=== PATIENT | female | born 1965 | race Caucasian/White ===

== ENCOUNTER 2016-10-02 11:34 | Emergency (ER) | payer MEDICAID ==
[2016-10-02] MEDS ORDERED: Sodium Chloride 0.9% 10 ML Syringe FLUSH PRN (11:42)
[2016-10-02] MEDS ORDERED: Aspirin 81 MG Tab.Chew PO ONE (11:50)
[2016-10-02 11:57] VITALS: BP 149/93
[2016-10-02 12:27] LABS: CHLORIDE,CL 102 mmol/L (101-111); SODIUM,NA 141 mmol/L (135-145)
--- NOTE | 2016-10-02 12:43 | CR ---
Clinical history: 51-year-old female chest pain reported March 2013 (same symptomatology) "no acu te intrathoracic finding"). Reevaluate please. Interpretation: Upright AP portable chest unremarkable. Normal cardiac silhouette and bony thorax. No cephalization of vascular flow, alveolar edema or depe ndent effusion. No new lung mass, hilar lymphadenopathy or focal lobar pneumonia identified in the interval since 16 April 2013 exam. No atelectasis/collapse. No pneumothorax. Chronic hypertrophic arthritic changes mildly scoliotic dorsal spine.
--- NOTE | 2016-10-02 13:24 | EDM.PDOC ---
Scribed by Scarlett Melissa 10/02/16 1324 for Lobo Borges MD ED HPI GENERAL MEDICAL PROBLEM - General Chief Complaint: Chest Pain Stated Complaint: DON'T FEEL GOOD CHEST PAIN ?[id number] Time Seen by Provider: 10/02/16 11:45 Source of Information: Reports: Patient, RN, RN Notes Reviewed History Limitations: Reports: No Limitations - History of Present Illness INITIAL COMMENTS - FREE TEXT/NARRATIVE: Arrives from work by POV with complaint of chest pain which began shortly after awakening this morning. Denies any shortness of breath. Admits to pain that radiates up the midline to the chest into the neck. Admits to anxiety with slight nausea. Patient believes the symptoms may be related to a Medrol Dose Andre that she took, because she had similar symptoms in the past when she took steroids. She admits to epigastric discomfort and heartburn. Denies vomiting, fever and chills. Onset: Today Location: Reports: Chest Severity: Moderate Improves with: Reports: None Worsens with: Reports: None Associated Symptoms: Reports: No Other Symptoms - Related Data Allergies Allergy/AdvReac Type Severity Reaction Status Date / Time acetaminophen [From Tylenol] Allergy Rash Verified 08/31/14 03:30 amoxicillin [Amoxicillin] Allergy Rash Verified 08/31/14 03:30 paroxetine HCl [From Paxil] Allergy Rash Verified 08/31/14 03:30 bleach Allergy Respiratory Uncoded 08/31/14 03:30 Distress Home Meds: Home Meds ALPRAZolam [Xanax] 0.5 mg PO ASDIRECTED PRN 04/16/13 [History] Albuterol [Proventil HFA] 2 puff INH Q4H PRN 04/16/13 [History] Fluticasone/Salmeterol [Advair 250-50 Diskus] 1 puff INH DAILY 04/16/13 [History ] Aspirin 81 mg PO DAILY 03/16/15 [History] Past Medical History Cardiovascular History: Reports: Other (See Below) Other Cardiovascular History: Had some heart test. Results unknow at this time. Respiratory History: Reports: COPD Other Genitourinary History: stress incontinence Psychiatric History: Reports: Depression Social & Family History - Family History Family Medical History: Noncontributory - Tobacco Use Smoking Status *Q: Current Every Day Smoker Years of Tobacco use: 30 Used Tobacco, but Quit: No Second Hand Smoke Exposure: Yes - Alcohol Use Days Per Week of Alcohol Use: 0 Number of Drinks Per Day: 3 Total Drinks Per Week: 0 - Recreational Drug Use Recreational Drug Use: No Drug Use in Last 12 Months: No ED ROS GENERAL - Review of Systems Review Of Systems: ROS reveals no pertinent complaints other than HPI. ED EXAM, GENERAL - Physical Exam Exam: See Below Exam Limited By: No Limitations General Appearance: Anxious Eye Exam: Bilateral Eye: Normal Inspection Ears: Normal External Exam, Normal Canal, Hearing Grossly Normal, Normal TMs Nose: Normal Inspection, Normal Mucosa, No Blood Throat/Mouth: Normal Inspection, Normal Lips, Normal Teeth, Normal Gums, Normal Oropharynx, Normal Voice, No Airway Compromise Head: Atraumatic, Normocephalic Neck: Normal Inspection, Supple, Non-Tender, Full Range of Motion Respiratory/Chest: No Respiratory Distress, Lungs Clear, Normal Breath Sounds, No Accessory Muscle Use, Chest Non-Tender Cardiovascular: Normal Peripheral Pulses, Regular Rate, Rhythm, No Edema, No Gallop, No JVD, No Murmur, No Rub GI/Abdominal: Normal Bowel Sounds, Soft, Non-Tender, No Organomegaly, No Distention, No Abnormal Bruit, No Mass (Female) Exam: Deferred Rectal (Female) Exam: Deferred Back Exam: Normal Inspection, Full Range of Motion, NT Extremities: Normal Inspection, Normal Range of Motion, Non-Tender, Normal Capillary Refill, No Pedal Edema Neurological: Alert, Oriented, CN II-XII Intact, Normal Cognition, Normal Gait, Normal Reflexes, No Motor/Sensory Deficits Psychiatric: Anxious Skin Exam: Warm, Dry, Intact, Normal Color, No Rash Lymphatic: No Adenopathy EKG INTERPRETATION EKG Date: 10/02/16 Time: 12:03 Rhythm: Other (sinus rhythm) Rate (Beats/Min): 82 [place]: Normal P-Wave: Present QRS: Normal ST-T: Normal QT: Normal Course - Vital Signs Last Recorded V/S: Last Vital Signs Temp 36.6 C 10/02/16 11:56 Pulse 88 10/02/16 11:56 Resp 16 10/02/16 11:56 BP 149/93 H 10/02/16 11:56 Pulse Ox 98 10/02/16 11:56 - Orders/Labs/Meds Orders: Active Orders 24 hr Category Date Time Status EKG 12 Lead [EKG Documentation Completion] [] STAT Care 10/02/16 11:42 Active Peripheral IV Care [RC] . DIRECTED Care 10/02/16 11:43 Active Sodium Chloride 0.9% [Saline Flush] Med 10/02/16 11:42 Active 10 ml FLUSH ASDIRECTED PRN Peripheral IV Insertion Adult [OM.PC] Stat Oth 10/02/16 11:42 Ordered Medication Orders Sodium Chloride (Saline Flush) 10 ml FLUSH ASDIRECTED PRN PRN Reason: Keep Vein Open Labs: Laboratory Tests 10/02/16 10/02/16 10/02/16 Range/Units 12:00 12:00 12:00 WBC 12.0 H (5.0-10.0) 10^3/uL RBC 4.83 (4.2-5.4) 10^6/uL Hgb 14.2 (12.0-16.0) g/dL Hct 41.7 (37.0-47.0) % MCV 86.3 (80-100) fL MCH 29.4 (27.0-34.0) pg MCHC 34.1 (33.0-35.0) g/dL Plt Count 254 (150-450) 10^3/uL Neut % (Auto) 56.5 (42.2-75.2) % Lymph % (Auto) 34.5 (20.5-50.1) % Arthur % (Auto) 6.6 (2-8) % Eos % (Auto) 1.9 (1.0-3.0) % Baso % (Auto) 0.5 (0.0-1.0) % D-Dimer, Quantitative < 100 (0-400) ng/mL Sodium 141 (135-145) mmol/L Potassium 4.4 (3.6-5.0) mmol/L Chloride 102 (101-111) mmol/L Carbon Dioxide 29.0 (21.0-31.0) mmol/L Anion Gap 14.4 BUN 20 H (7-18) mg/dL Creatinine 0.6 (0.6-1.3) mg/dL Est Cr Clr Drug Dosing 99.82 mL/min Estimated GFR (MDRD) > 60 BUN/Creatinine Ratio 33.33 Glucose 114 H (74-105) mg/dL Calcium 9.2 (8.4-10.2) mg/dl Total Bilirubin 0.5 (0.2-1.0) mg/dL AST 21 (10-42) IU/L ALT 22 (10-60) IU/L Alkaline Phosphatase 52 (42-121) IU/L Total Protein 7.0 (6.7-8.2) g/dl Albumin 4.1 (3.2-5.5) g/dl Globulin 2.9 Albumin/Globulin Ratio 1.41 Amylase 46 (28-100) U/L Lipase 29 (22-51) U/L Urine Color (YELLOW) Urine Appearance (CLEAR) Urine pH (5.0-9.0) Ur Specific Harmony (1.005-1.030) Urine Protein (NEGATIVE) Urine Glucose (UA) (NEGATIVE) Urine Ketones (NEGATIVE) Urine Occult Blood (NEGATIVE) Urine Nitrite (NEGATIVE) Urine Bilirubin (NEGATIVE) Urine Urobilinogen (0.2-1.0) mg/dL Ur Leukocyte Esterase (NEGATIVE) Urine RBC /HPF Urine WBC (0-5/HPF) /HPF Ur Epithelial Cells /HPF Urine Bacteria (0-FEW/HPF) /HPF Urine Mucus /LPF Urine Opiates Screen (NEGATIVE) Ur Oxycodone Screen (NEGATIVE) Urine Methadone Screen (NEGATIVE) Ur Barbiturates Screen (NEGATIVE) U Tricyclic Antidepress (NEGATIVE) Ur Phencyclidine Scrn (NEGATIVE) Ur Amphetamine Screen (NEGATIVE) U Methamphetamines Scrn (NEGATIVE) Urine MDMA Screen (NEGATIVE) U Benzodiazepines Scrn (NEGATIVE) Urine Cocaine Screen (NEGATIVE) U Marijuana (THC) Screen (NEGATIVE) 10/02/16 10/02/16 Range/Units 12:18 12:18 WBC (5.0-10.0) 10^3/uL RBC (4.2-5.4) 10^6/uL Hgb (12.0-16.0) g/dL Hct (37.0-47.0) % MCV (80-100) fL MCH (27.0-34.0) pg MCHC (33.0-35.0) g/dL Plt Count (150-450) 10^3/uL Neut % (Auto) (42.2-75.2) % Lymph % (Auto) (20.5-50.1) % Arthur % (Auto) (2-8) % Eos % (Auto) (1.0-3.0) % Baso % (Auto) (0.0-1.0) % D-Dimer, Quantitative (0-400) ng/mL Sodium (135-145) mmol/L Potassium (3.6-5.0) mmol/L Chloride (101-111) mmol/L Carbon Dioxide (21.0-31.0) mmol/L Anion Gap BUN (7-18) mg/dL Creatinine (0.6-1.3) mg/dL Est Cr Clr Drug Dosing mL/min Estimated GFR (MDRD) BUN/Creatinine Ratio Glucose (74-105) mg/dL Calcium (8.4-10.2) mg/dl Total Bilirubin (0.2-1.0) mg/dL AST (10-42) IU/L ALT (10-60) IU/L Alkaline Phosphatase (42-121) IU/L Total Protein (6.7-8.2) g/dl Albumin (3.2-5.5) g/dl Globulin Albumin/Globulin Ratio Amylase (28-100) U/L Lipase (22-51) U/L Urine Color Yellow (YELLOW) Urine Appearance Slightly cloudy (CLEAR) Urine pH 5.0 (5.0-9.0) Ur Specific Harmony 1.020 (1.005-1.030) Urine Protein Negative (NEGATIVE) Urine Glucose (UA) Negative (NEGATIVE) Urine Ketones Negative (NEGATIVE) Urine Occult Blood Trace-intact H (NEGATIVE) Urine Nitrite Negative (NEGATIVE) Urine Bilirubin Negative (NEGATIVE) Urine Urobilinogen 0.2 (0.2-1.0) mg/dL Ur Leukocyte Esterase Negative (NEGATIVE) Urine RBC 5-10 H /HPF Urine WBC 0-5 (0-5/HPF) /HPF Ur Epithelial Cells Few /HPF Urine Bacteria Rare (0-FEW/HPF) /HPF Urine Mucus Rare /LPF Urine Opiates Screen Negative (NEGATIVE) Ur Oxycodone Screen Negative (NEGATIVE) Urine Methadone Screen Negative (NEGATIVE) Ur Barbiturates Screen Negative (NEGATIVE) U Tricyclic Antidepress Negative (NEGATIVE) Ur Phencyclidine Scrn Negative (NEGATIVE) Ur Amphetamine Screen Negative (NEGATIVE) U Methamphetamines Scrn Negative (NEGATIVE) Urine MDMA Screen Negative (NEGATIVE) U Benzodiazepines Scrn Negative (NEGATIVE) Urine Cocaine Screen Negative (NEGATIVE) U Marijuana (THC) Screen Negative (NEGATIVE) Meds: Medications Generic Name Dose Route Start Last Admin Trade Name Freq PRN Reason Stop Dose Admin Sodium Chloride 10 ml 10/02/16 11:42 Saline Flush FLUSH ASDIRECTED PRN Keep Vein Open Discontinued Medications Generic Name Dose Route Start Last Admin Trade Name Freq PRN Reason Stop Dose Admin Aspirin 324 mg 10/02/16 11:50 10/02/16 12:37 Aspirin PO 10/02/16 11:51 324 mg ONETIME ONE Administration - Radiology Interpretation Free Text/Narrative:: Chest x-ray: No acute changes. Per rad report. Departure - Departure Time of Disposition: 13:10 Disposition: Home, Self-Care 01 Condition: Good Clinical Impression: Atypical chest pain, Anxiety disorder Instructions: Nonspecific Chest Pain, [id number] Forms: ED Department Discharge Additional Instructions: Follow up in the clinic in the next 3 to 5 days if not improved. Drink plenty of water. Continue Cephalexin as prescribed. - My Orders Last 24 Hours: My Active Orders 10/02/16 11:42 EKG 12 Lead [EKG Documentation Completion] [RC] STAT Sodium Chloride 0.9% [Saline Flush] 10 ml FLUSH ASDIRECTED PRN Peripheral IV Insertion Adult [OM.PC] Stat 10/02/16 11:43 Peripheral IV Care [RC] . DIRECTED - Assessment/Plan Last 24 Hours: My Active Orders 10/02/16 11:42 EKG 12 Lead [EKG Documentation Completion] [RC] STAT Sodium Chloride 0.9% [Saline Flush] 10 ml FLUSH ASDIRECTED PRN Peripheral IV Insertion Adult [OM.PC] Stat 10/02/16 11:43 Peripheral IV Care [RC] . DIRECTED I have read and agree with the documentation that has been completed regarding this visit. By signing this record, I attest that the documentation was completed in my physical presence and is an accurate record of the encounter.
--- NOTE | 2016-10-11 10:27 | EKG ---
10/02/2016- ROMEO MARTINEZ - This is a standard 12-lead EKG showing normal sinus rhythm with a ventricular rate of 82 beats per minute. Normal IA interval, QRS duration. No significant ST-T changes. [facility] /[id number] MTDD
== END 2016-10-02 13:23 | disposition home or self-care (01) ==
LOC: DL.ED 11:34
DX: R07.89 Other chest pain (principal); F41.9 Anxiety disorder, unspecified; J44.9 Chronic obstructive pulmonary disease, unspecified; F32.9 Major depressive disorder, single episode, unspecified; F17.210 Nicotine dependence, cigarettes, uncomplicated; Z88.1 Allergy status to other antibiotic agents; Z88.8 Allergy status to other drugs, medicaments and biological substances; Z88.6 Allergy status to analgesic agent; Z79.82 Long term (current) use of aspirin
CPT/HCPCS: 36415; 71010; 80053; 80305; 81001; 82150; 83690; 85025; 85379; 93005; 99284; A9270

== ENCOUNTER 2018-04-25 13:01 | Emergency (ER) | payer MEDICAID ==
--- NOTE | 2018-04-25 13:28 | EDM.PDOC ---
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 At 1100 she slipped on ice and hit her head on the corner of a building. She hit her left forehead, landed on her right arm and left wrist. No loss of consciousness or memory. She is having right distal humerus pain that worsens with movement. She is having frontal headache that is worse on the left. She is having blurry vision and dizziness. She is having nausea but no vomiting. She takes a Aspirin 81mg daily. (Darleen Martin) - Related Data Allergies Allergy/AdvReac Type Severity Reaction Status Date / Time acetaminophen [From Tylenol] Allergy Rash Verified 04/25/18 13:54 amoxicillin [Amoxicillin] Allergy Rash Verified 04/25/18 13:54 paroxetine HCl [From Paxil] Allergy Rash Verified 04/25/18 13:54 bleach Allergy Respiratory Uncoded 04/25/18 13:54 Distress Home Meds: Home Meds ALPRAZolam [Xanax] 0.5 mg PO ASDIRECTED PRN 04/16/13 [History] Albuterol [Proventil HFA] 2 puff INH Q4H PRN 04/16/13 [History] Fluticasone/Salmeterol [Advair 250-50 Diskus] 1 puff INH DAILY 04/16/13 [History ] Aspirin 81 mg PO DAILY 03/16/15 [History] Albuterol/Ipratropium [DuoNeb 3.0-0.5 MG/3 ML] 3 ml NEB Q6H PRN 04/25/18 [ History] Past Medical History HEENT History: Reports: Impaired Vision Cardiovascular History: Reports: Other (See Below) Other Cardiovascular History: Had some heart test. Results unknow at this time. Respiratory History: Reports: COPD Other Genitourinary History: stress incontinence Psychiatric History: Reports: Depression - Past Surgical History Female Surgical History: Reports: Hysterectomy Musculoskeletal Surgical History: Reports: Other (See Below) Other Musculoskeletal Surgeries/Procedures:: right knee <Darleen Martin R - Last Filed: 04/25/18 14:37> Social & Family History - Family History Family Medical History: Noncontributory - Caffeine Use Caffeine Use: Reports: Coffee, Tea <Darleen Martin R - Last Filed: 04/25/18 14:37> ED ROS GENERAL - Review of Systems Review Of Systems: See Below Constitutional: Reports: Fatigue. Denies: Fever, Chills HEENT: Reports: Vision Change (blurried vision. States "it looks like [place]") Respiratory: Reports: No Symptoms Cardiovascular: Reports: No Symptoms Endocrine: Reports: No Symptoms GI/Abdominal: Reports: Nausea. Denies: Vomiting : Reports: No Symptoms Musculoskeletal: Reports: Arm Pain (right arm pain proximal to elbow) Skin: Reports: Other (abrasion to left wrist) Neurological: Reports: Dizziness, Headache (left frontal ), Other (no loss of consciousness or memory ). Denies: Confusion, Numbness, Seizure, Tingling, Tremors, Change in Speech Psychiatric: Reports: No Symptoms Hematologic/Lymphatic: Reports: No Symptoms Immunologic: Reports: No Symptoms <Darleen Martin R - Last Filed: 04/25/18 14:37> - Review of Systems Musculoskeletal: Reports: Arm Pain Neurological: Denies: Paresthesia, Syncope, Trouble Speaking, Difficulty Walking , Weakness, Gait Disturbance <Aston Aguero G - Last Filed: 04/26/18 07:04> ED EXAM, HEAD INJURY - Physical Exam Exam: See Below Exam Limited By: No Limitations General Appearance: Alert, WD/WN, No Apparent Distress, Other (Patient has memory of fall) Head: Facial Abrasions (left hinduism) Eyes: Bilateral Eye: Normal Fundi, Normal Inspection, Periorbital Changes, Vision Changes (blurried vision) Ears: Normal External Exam, Normal Canal, Hearing Grossly Normal, Normal TMs. No: TM Erythema Nose: Normal Inspection, Normal Mucousa, No Blood Throat/Mouth: Normal Inspection, Normal Lips, Normal Teeth, Normal Gums, Normal Oropharynx, Normal Voice, No Airway Compromise Neck: Non-Tender, Full Range of Motion, Normal Alignment, Normal Inspection. No : Spinous Processes Tender Respiratory: No Respiratory Distress, Lungs Clear, Normal Breath Sounds, No Accessory Muscle Use, Chest Non-Tender Cardiovascular: Normal Peripheral Pulses, Regular Rate, Rhythm, No Edema, No Gallop, No JVD, No Murmur, No Rub GI/Abdominal Exam: Normal Bowel Sounds, Soft, Non-Tender Extremities: Arm Pain (Right arm pain on palpation of distal humerus. No redness , swelling, or bruising. ). No: Increased Warmth, Redness Neurologic: nurse specialist II-XII nml As Tested, No Motor/Sensory Deficits, Alert, Normal Mood/Affect, Oriented x 3 Skin: Normal Color, Warm/Dry, Other (abrasion to left wrist and left forehead) - Lata Coma Score Best Eye Response (Lata): (4) Open Spontaneously Best Verbal Response (Humphrey): (5) Oriented Best Motor Response (Lata): (6) Obeys Commands Humphrey Total: 15 <Darleen Martin R - Last Filed: 04/25/18 14:37> - Physical Exam Eyes: Bilateral Eye: Periorbital Changes (no changes), PERRL <Aston Aguero G - Last Filed: 04/26/18 07:04> Course <Darleen Martin R - Last Filed: 04/25/18 14:37> <Aston Aguero - Last Filed: 04/26/18 07:04> - Vital Signs Last Recorded V/S: Last Vital Signs Temp 36.6 C 04/25/18 13:11 Pulse 80 04/25/18 13:11 Resp 16 04/25/18 13:11 BP 129/94 H 04/25/18 14:00 Pulse Ox 100 04/25/18 13:11 - Radiology Interpretation Free Text/Narrative:: left elbow x-ray showed no acute fracture Head CT showed no evidence of acute intracranial abnormality (Darleen Martin ) - Re-Assessments/Exams Free Text/Narrative Re-Assessment/Exam: 04/26/18 07:02 I personally performed or re-performed the physical examination and medical decision making. I have verified all student documentation or findings, including history, physical exam and/or medical decision making. (Aston Aguero) Departure - Departure Time of Disposition: 13:59 Condition: Good - Discharge Information *PRESCRIPTION DRUG MONITORING PROGRAM REVIEWED*: Not Applicable *COPY OF PRESCRIPTION DRUG MONITORING REPORT IN PATIENT BHAVIN: Not Applicable <Darleen Martin - Last Filed: 04/25/18 14:37> <Aston Aguero - Last Filed: 04/26/18 07:04> - Departure Disposition: Home, Self-Care 01 Clinical Impression: Concussion with no loss of consciousness - Discharge Information Instructions: Concussion, Adult, [id number], Head Injury, Adult, [id number] Referrals: PCP,Not In Area [Primary Care Provider] - Forms: ED Department Discharge Additional Instructions: Rest the brain (decrease screen time, rest, no strenuous activity) Return to ED if symptoms worsens or not improving (excessive vomiting, severe headache) Follow up with PCP if symptoms not improving or concerns <Darleen Martin - Last Filed: 04/25/18 14:37> <Aston Aguero - Last Filed: 04/26/18 07:04> - Assessment/Plan Assessment:: concussion (Darleen Martin) Plan: Rest the brain (decrease screen time, rest, no strenuous activity) Return to ED if symptoms worsens or not improving (excessive vomiting, severe headache) Follow up with PCP if symptoms not improving or concerns (Darleen Martin)
[2018-04-25 14:30] VITALS: BP 129/94
== END 2018-04-25 14:24 | disposition home or self-care (01) ==
LOC: DL.ED 13:01
DX: S06.0X0A Concussion without loss of consciousness, initial encounter (principal); S00.81XA Abrasion of other part of head, initial encounter; S60.812A Abrasion of left wrist, initial encounter; J44.1 Chronic obstructive pulmonary disease with (acute) exacerbation; F32.9 Major depressive disorder, single episode, unspecified; Z88.1 Allergy status to other antibiotic agents; Z88.8 Allergy status to other drugs, medicaments and biological substances; Z79.82 Long term (current) use of aspirin; Z90.710 Acquired absence of both cervix and uterus; W01.198A Fall on same level from slipping, tripping and stumbling with subsequent striking against other object, initial encounter
CPT/HCPCS: 70450; 73080-RT; 99284-25

== ENCOUNTER 2019-03-31 19:10 | Emergency (ER) | payer MEDICAID ==
--- NOTE | 2019-03-31 19:50 | EDM.PDOC ---
ED HPI GENERAL MEDICAL PROBLEM - General Stated Complaint: AMB Time Seen by Provider: 03/31/19 19:40 Source of Information: Reports: Patient History Limitations: Reports: No Limitations - History of Present Illness INITIAL COMMENTS - FREE TEXT/NARRATIVE: This 54 yo female patient was brought to the ED by [facility] due to chest pain. The patient reports her symptoms started 3-4 days ago, but have seemed to get worse today. The patient reports she has a history of COPD, anxiety and GERD. The patient reports she has taken some Tums, but has not had any relief. The patient reports she used to take Omeprazole, but has not taken any recently. Onset Date: 03/28/19 Duration: Constant, Getting Worse Location: Reports: Chest Quality: Reports: Ache, Burning Severity: Moderate Improves with: Reports: None Worsens with: Reports: None Context: Reports: Other Associated Symptoms: Reports: Chest Pain, Cough (chronic non-productive) Chest Pain Score (Numeric/FACES): 0 - Related Data Allergies Allergy/AdvReac Type Severity Reaction Status Date / Time acetaminophen [From Tylenol] Allergy Rash Verified 03/31/19 20:26 amoxicillin [Amoxicillin] Allergy Rash Verified 03/31/19 20:26 paroxetine HCl [From Paxil] Allergy Rash Verified 03/31/19 20:26 bleach Allergy Respiratory Uncoded 03/31/19 20:26 Distress Home Meds: Home Meds ALPRAZolam [Xanax] 0.5 mg PO ASDIRECTED PRN 04/16/13 [History] Albuterol [Proventil HFA] 2 puff INH Q4H PRN 04/16/13 [History] Fluticasone/Salmeterol [Advair 250-50 Diskus] 1 puff INH DAILY 04/16/13 [History ] Aspirin 81 mg PO DAILY 03/16/15 [History] Albuterol/Ipratropium [DuoNeb 3.0-0.5 MG/3 ML] 3 ml NEB Q6H PRN 04/25/18 [ History] Echinacea 1 tab PO DAILY 03/31/19 [History] Ibuprofen 200 mg PO QID PRN 03/31/19 [History] Nitroglycerin [Nitrostat] 0.4 mg SL ASDIRECTED PRN 03/31/19 [History] Past Medical History HEENT History: Reports: Impaired Vision Cardiovascular History: Reports: Other (See Below) Other Cardiovascular History: Had some heart test. Results unknow at this time. Respiratory History: Reports: COPD Other Genitourinary History: stress incontinence Psychiatric History: Reports: Depression - Past Surgical History Female Surgical History: Reports: Hysterectomy Musculoskeletal Surgical History: Reports: Other (See Below) Other Musculoskeletal Surgeries/Procedures:: right knee Social & Family History - Family History Family Medical History: Noncontributory - Caffeine Use Caffeine Use: Reports: Coffee, Tea ED ROS GENERAL - Review of Systems Review Of Systems: Comprehensive ROS is negative, except as noted in HPI. ED EXAM, GENERAL - Physical Exam Exam: See Below Exam Limited By: No Limitations General Appearance: Alert, WD/WN, Anxious Eye Exam: Bilateral Eye: EOMI, Normal Inspection, PERRL Ears: Normal External Exam, Normal Canal, Hearing Grossly Normal, Normal TMs Nose: Normal Inspection, Normal Mucosa, No Blood Throat/Mouth: Normal Inspection, Normal Lips, Normal Teeth, Normal Gums, Normal Oropharynx, Normal Voice, No Airway Compromise Head: Atraumatic, Normocephalic Neck: Normal Inspection, Supple, Non-Tender, Full Range of Motion Respiratory/Chest: No Respiratory Distress, Lungs Clear, Normal Breath Sounds, No Accessory Muscle Use, Chest Non-Tender Cardiovascular: Normal Peripheral Pulses, Regular Rate, Rhythm, No Edema, No Gallop, No JVD, No Murmur, No Rub GI/Abdominal: Normal Bowel Sounds, Soft, Non-Tender, No Organomegaly, No Distention, No Abnormal Bruit, No Mass (Female) Exam: Deferred Rectal (Female) Exam: Deferred Back Exam: Normal Inspection, Full Range of Motion, NT Extremities: Normal Inspection, Normal Range of Motion, Non-Tender, Normal Capillary Refill, No Pedal Edema Neurological: Alert, Oriented, CN II-XII Intact, Normal Cognition, Normal Gait, Normal Reflexes, No Motor/Sensory Deficits Psychiatric: Anxious Skin Exam: Warm, Dry, Intact, Normal Color, No Rash Lymphatic: No Adenopathy Course - Vital Signs Last Recorded V/S: Last Vital Signs Temp 35.9 C 03/31/19 19:35 Pulse 95 03/31/19 19:35 Resp 20 03/31/19 19:35 BP 141/87 H 03/31/19 19:35 Pulse Ox 95 03/31/19 19:35 - Orders/Labs/Meds Orders: Active Orders 24 hr Category Date Time Status EKG Documentation Completion [RC] URGENT Care 03/31/19 19:46 Active Chest 1V Frontal [CR] Urgent Exams 03/31/19 19:46 Taken Omeprazole Med 03/31/19 20:45 Once 20 mg PO ONETIME ONE Labs: Laboratory Tests 03/31/19 03/31/19 Range/Units 19:55 19:55 WBC 10.3 H (5.0-10.0) 10^3/uL RBC 4.62 (4.2-5.4) 10^6/uL Hgb 13.7 (12.0-16.0) g/dL Hct 39.8 (37.0-47.0) % MCV 86.1 (80-100) fL MCH 29.7 (27.0-34.0) pg MCHC 34.4 (33.0-35.0) g/dL Plt Count 228 (150-450) 10^3/uL Neut % (Auto) 56.2 (42.2-75.2) % Lymph % (Auto) 33.0 (20.5-50.1) % [place] % (Auto) 7.6 (2-8) % Eos % (Auto) 2.7 (1.0-3.0) % Baso % (Auto) 0.5 (0.0-1.0) % Sodium 137 (135-145) mmol/L Potassium 4.7 (3.6-5.0) mmol/L Chloride 100 L (101-111) mmol/L Carbon Dioxide 28.0 (21.0-31.0) mmol/L Anion Gap 13.7 BUN 22 H (7-18) mg/dL Creatinine 0.9 (0.6-1.3) mg/dL Est Cr Clr Drug Dosing TNP Estimated GFR (MDRD) > 60 BUN/Creatinine Ratio 24.44 Glucose 93 (74-105) mg/dL Calcium 9.2 (8.4-10.2) mg/dl Total Bilirubin 0.4 (0.2-1.0) mg/dL AST 16 (10-42) IU/L ALT 17 (10-60) IU/L Alkaline Phosphatase 55 (42-121) IU/L Troponin I 0.03 H* (0.00-0.02) ng/ml Total Protein 6.7 (6.7-8.2) g/dl Albumin 4.1 (3.2-5.5) g/dl Globulin 2.6 Albumin/Globulin Ratio 1.58 Departure - Departure Time of Disposition: 20:45 Disposition: Home, Self-Care 01 Condition: Fair Clinical Impression: GERD (gastroesophageal reflux disease) Qualifiers: Esophagitis presence: with esophagitis Qualified Code(s): K21.0 - Gastro- esophageal reflux disease with esophagitis Instructions: Food Choices for Gastroesophageal Reflux Disease, Adult, Easy-to- Read, Gastroesophageal Reflux Disease, Adult, [id number] Forms: ED Department Discharge Care Plan Goals: The patient was advised of the examination, lab, x-ray and EKG results during the visit. The patient was given an oral dose of Omeprazole while in the ED. The patient was discharged with a script for Omeprazole (20 mg) to take 1 by mouth daily 30 minutes before eating. If the patient has any additional symptoms or concerns, the patient should follow-up with her primary care facility or return to the emergency department. Sepsis Event Note - Focused Exam Vital Signs: Vital Signs Temp Pulse Resp BP Pulse Ox 03/31/19 19:35 35.9 C 95 20 141/87 H 95 Date Exam was Performed: 03/31/19 Time Exam was Performed: 20:45 - My Orders Last 24 Hours: My Active Orders 03/31/19 19:46 EKG Documentation Completion [RC] URGENT Chest 1V Frontal [CR] Urgent 03/31/19 20:45 Omeprazole 20 mg PO ONETIME ONE - Assessment/Plan Last 24 Hours: My Active Orders 03/31/19 19:46 EKG Documentation Completion [RC] URGENT Chest 1V Frontal [CR] Urgent 03/31/19 20:45 Omeprazole 20 mg PO ONETIME ONE
[2019-03-31 20:18] LABS: ANION GAP 13.7; CHLORIDE,CL 100 mmol/L (101-111); SODIUM,NA 137 mmol/L (135-145)
[2019-03-31 20:26] VITALS: BP 141/87; PULSE 95
[2019-03-31] MEDS ORDERED: Omeprazole 20 MG Cap.CR PO ONE (20:45)
== END 2019-03-31 20:59 | disposition home or self-care (01) ==
LOC: DL.ED 19:10
DX: K21.0 Gastro-esophageal reflux disease with esophagitis (principal); J44.9 Chronic obstructive pulmonary disease, unspecified; F32.9 Major depressive disorder, single episode, unspecified; Z79.899 Other long term (current) drug therapy; Z90.710 Acquired absence of both cervix and uterus; Z88.1 Allergy status to other antibiotic agents; Z91.09 Other allergy status, other than to drugs and biological substances
CPT/HCPCS: 36415; 71045; 80053; 84484; 85025; 93005; 99285; A9270